=== PATIENT | male | born 1985 | race African-American/Black ===

== ENCOUNTER 2021-04-02 15:29 | Emergency (ER) | payer BC ==
[~2021-04-02] VITALS: Ht 165.1 cm; Wt 54.4 kg
[2021-04-02 15:31] VITALS: BP 148/91
[2021-04-02] MEDS ORDERED: CETIRIZINE HCL10 MG PO (15:40)
[2021-04-02] MEDS ORDERED: NORVASC10 MG PO (15:41)
[2021-04-02] MEDS ORDERED: PROPRANOLOL 1010 M1 PO (15:41)
[2021-04-02] MEDS ORDERED: METHOCARBAMOL500 M2 PO (15:42)
[2021-04-02] MEDS ORDERED: ZUPLENZ4 MG PO (15:42)
[2021-04-02] MEDS ORDERED: TESSALON PERLE100 MG PO (15:43)
== END 2021-04-02 17:17 | disposition home or self-care (01) ==
LOC: ER 15:29
DX: B34.9 Viral infection, unspecified (principal); Z20.822 Contact with and (suspected) exposure to COVID-19; E10.9 Type 1 diabetes mellitus without complications; I10 Essential (primary) hypertension; F17.200 Nicotine dependence, unspecified, uncomplicated; F12.90 Cannabis use, unspecified, uncomplicated; Z79.891 Long term (current) use of opiate analgesic; Z79.899 Other long term (current) drug therapy; Z88.6 Allergy status to analgesic agent; Z88.5 Allergy status to narcotic agent; Z88.0 Allergy status to penicillin; Z88.2 Allergy status to sulfonamides; Z88.8 Allergy status to other drugs, medicaments and biological substances